=== PATIENT | male | born 1940 | race Caucasian/White ===

== ENCOUNTER 2020-06-11 12:49 | Outpatient (RCR) | payer SELFPAY | END 2020-07-05 | disposition home or self-care (01) | LOC: WCC 12:49 | DX: E11.621 Type 2 diabetes mellitus with foot ulcer (principal); A48.0 Gas gangrene; L97.523 Non-pressure chronic ulcer of other part of left foot with necrosis of muscle; Z95.5 Presence of coronary angioplasty implant and graft; E11.9 Type 2 diabetes mellitus without complications; I11.9 Hypertensive heart disease without heart failure; I25.2 Old myocardial infarction; E78.5 Hyperlipidemia, unspecified; I25.10 Atherosclerotic heart disease of native coronary artery without angina pectoris ==